=== PATIENT | female | born 1950 | race Caucasian/White ===

== ENCOUNTER 2019-08-24 07:30 | Inpatient (IN) | payer MEDICARE, BC ==
[~2019-08-24 07:30] MED LIST: Buffered Lidocaine 1% SYRIN* 1 ML/SYRINGE INTRADERM ONE; Famotidine IV* 10 MG/ML 2 ML (20 mg) IV SLOW PU ONE; Lactated Ringers 1000 ML Bag* 1,000 ML IV SCH; Tranexamic Acid 1,000 MG in NS 0.9% 50 ML* (outpatient use) IV SCH
--- OUTSIDE RECORDS SUMMARY | 2019-08-24 08:05 | XMS REPORT | Continuity of Care Document ---
:1950 External Reference #:[id number] Author Name Randell Hankins M.D. (transmitted by agent of provider Monica Littlefork) Address [address] [place] [address], [place] [address] Care Team Providers Name Role Phone Apurva Monae MD - Family Care Team Information Putty Tinter Maker [phone] Medicine Problems Active Problems Provider Date Localized, primary osteoarthritis of Evangelist Bhardwaj MD Onset: 04/28/2019 the shoulder region Essential tremor Randell Hankins M.D. Onset: 01/28/2018 Essential hypertension Alba Elmore M.D. Onset: 01/18/2016 Restrictive cardiomyopathy secondary to Alba Elmore M.D. Onset: granulomas Tricuspid valve disorder, non-rheumatic Alba Elmore M.D. Onset: Benign essential hypertension Alba Elmore M.D. Onset: 01/04/2013 Mitral valve disorder Alba Elmore M.D. Onset: 01/04/2013 Social History Type Date Description Comments Sex Unknown ETOH Use Consumes 2 glasses of wine per day Tobacco Use Start: Unknown End: Patient is a former smoker Unknown Recreational Drug Use Denies Drug Use Smoking Status Reviewed: 08/15/19 Patient is a former smoker Exercise Type/Frequency Exercises regularly Allergies, Adverse Reactions, Alerts Active Allergies Reaction Severity Comments Date Latex 11/25/2016 Inactive Allergies NKDA 11/12/2005 Medications Active Medications SIG Qnty Indications Ordering Provider Date Hydrochlorothiazide 1 by mouth 30caps Randell Hankins, 08/15/2019 12.5mg every day M.D. Capsules Amlodipine Besylate 1 by mouth Qutaybjuan S. 06/28/2019 10mg Tablets every day Jonatan Elmore Primidone take 1 at 90tabs G25.0 Randell Hankins, 04/08/2019 50mg Tablets night M.DDebi Levothyroxine Sodium PO qam 30tabs [place] S. 09/15/2007 88mcg Jonatan Elmore Tablets Albuterol Inhalation 2 Puffs qid Alba S. 11/11/2005 90mcg/Dose prn Jonatan Elmore Aerosol Metoprolol Succinate ER 1 po bid Unknown 100mg Tablets ER 24HR Vitamin D 2 tablets 5x Unknown per week Biotin 1 po qd Unknown 2500mcg Capsules Calcium 1 by mouth Unknown 600mg Tablets three days a week Vitamin B12 1 by mouth Unknown 1000mcg Tablets ER three days a week Immunizations Description No Information Available Vital Signs Date Vital Result Comment 08/15/2019 11:59am Height 64 inches 5'4" Weight 113.00 lb Heart Rate 90 /min BP Systolic 132 mmHg BP Diastolic 72 mmHg BMI (Body Mass Index) 19.4 kg/m2 06/29/2019 1:42pm Height 64 inches 5'4" Weight 114.00 lb with shoes Heart Rate 86 /min radial, regular BP Systolic Sitting 166 mmHg LA, reg cuff BP Diastolic Sitting 82 mmHg LA, reg cuff BP Systolic Standing 162 mmHg LA, reg cuff BP Diastolic Standing 84 mmHg LA, reg cuff BMI (Body Mass Index) 19.6 kg/m2 Ejection Fraction 55%-60% echo 01/16/15 Results Test Date Facility Test Result H/L Range Note Urine Culture And 08/04/2019 [facility] Urine Culture SEE RESULT [address] [place] [address] [phone] 1 SEE RESULT BELOW Name: CATALINA MOORE : [address]: Apurva Monae MD Acct: [id number] Unit: [id number] AGE: 68 Location: [facility] Re08/04/19 SEX: F Status: REG REF SPEC: [id number] NETTA: 08/04/[address] [facility] [address]: Apurva Monae MD REQ: [id number] RECD: 08/04/19 STATUS: COMP OTHR DR: Evangelist Bhardwaj MD _ SOURCE: URINE SPDESC: ORDERED: Urine Culture COMMENTS: Copy Result to: EVANGELIST BHARDWAJ ([id number]) [id number] Urine Source: Random Procedure Result Reported Site Urine Culture Final 08/05/19- 1227 ML No growth of clinically significant organisms * ML - Main Lab . END OF REPORT DEPARTMENT OF PATHOLOGY, [address] [place] [address] Joaquin Pacheco M.D. Director [facility] # [id number] Procedures Date Code Description Status 07/21/2019 82259 Holter Monitor Review (24 hr)dr review & interp only Completed 07/19/2019 24393 ECG Monitor/Recording W/Visual Superimposition Scanning Completed 07/19/2019 51610 ECG Monitor/Recording W/Visual Superimposition Scanning Completed 07/18/2019 58739 ECHO Transthoracic, Real-Time 2D With Doppler And Color Completed Flow 07/18/2019 96870 ECHO Transthoracic, Real-Time 2D With Doppler And Color Completed Flow 06/29/2019 26508 EKG Tracing & Interpretation Completed 05/06/2002 15255224 Colonoscopy Completed Medical Devices Description No Information Available Encounters Type Date Location Provider Dx Diagnosis Office Visit 06/29/2019 [facility] [place] S. I34.0 Nonrheumatic mitral 2:00p Jonatan Elmore (valve) insufficiency I10 Essential (primary) hypertension E78.5 Hyperlipidemia, unspecified Z01.810 Encounter for preprocedural cardiovascular examination R00.0 Tachycardia, unspecified R94.31 Abnormal electrocardiogram [ECG] [EKG] M19.011 Primary osteoarthritis, right shoulder Office Visit 06/14/2019 [facility] Saenz M19.011 Primary 1:15p [facility] oste[facility], [place] right shoulder Office Visit 05/12/2019 [facility] Saenz M19.011 Primary 11:15a [facility] osteoarthritis, [place] right shoulder Office Visit 04/28/2019 [facility] Saenz M19.011 Primary 10:45a [facility] osteoarthritis, [place] right shoulder S46.011A Strain of musc/tend the rotator cuff of right shoulder, init Office Visit 04/08/2019 8:45a [facility] Randell Hankins, G25.0 [facility] tremor Assessments Date Code Description Provider 08/15/2019 G25.0 Essential tremor Randell Hankins M.D. 07/21/2019 R00.0 Tachycardia, unspecified Alba Elmore M.D. 07/19/2019 R00.0 Tachycardia, unspecified Alba Elmore M.D. 07/19/2019 R00.0 Tachycardia, unspecified Nurse Visit cc 07/18/2019 I34.0 Nonrheumatic mitral (valve) Alba Elmore M.D. insufficiency 07/18/2019 I34.0 Nonrheumatic mitral (valve) [facility] insufficiency 07/18/2019 I10 Essential (primary) hypertension [facility] 07/18/2019 R00.0 Tachycardia, unspecified [facility] 06/29/2019 I34.0 Nonrheumatic mitral (valve) Alba Elmore M.D. insufficiency 06/29/2019 I10 Essential (primary) hypertension Alba Elmore M.D. 06/29/2019 E78.5 Hyperlipidemia, scoobyified Alba Elmore M.D. 06/29/2019 Z01.810 Encounter for preprocedural Alba Elmore M.D. cardiovascular examination 06/29/2019 R00.0 Tachycardia, unspecified Alba Elmore M.D. 06/29/2019 R94.31 Abnormal electrocardiogram [ECG] Alba Elmore M.D. [EKG] 06/29/2019 M19.011 Primary osteoarthritis, right Alba Elmore M.D. shoulder 06/14/2019 M19.011 Primary osteoarthritis, right Evangelist Bhardwaj MD shoulder 05/12/2019 M19.011 Primary osteoarthritis, right Evangelist Bhardwaj MD shoulder 04/28/2019 M19.011 Primary osteoarthritis, right Evangelist Bhardwaj MD shoulder 04/28/2019 S46.011A Strain of muscle(s) and tendon(s) of Evangelist Bhardwaj MD the rotator cuff of [facility] 04/08/2019 G25.0 Essential tremor Randell Hankins M.D. Plan of Treatment Future Appointment(s):02/16/2020 2:15 pm - Randell Hankins M.D. at [facility]08/24/2019 10:30 am - Evangelist Bhardwaj MD at [facility]08/16/2019 9:15 am - Evangelist Bhardwaj MD at [facility]08/15/2019 - Randell Hankins M.D.G25.0 Essential tremor Functional Status Description No Information Available Mental Status Description No Information Available Referrals Description No Information Available
--- OUTSIDE RECORDS SUMMARY | 2019-08-24 08:05 | XMS REPORT | Continuity of Care Document ---
:1950 External Reference #:[id number] Author Name Evangelist Bhardwaj MD (transmitted by agent of provider Mary Bsas) Address [address] [place] [address] Care Team Providers Name Role Phone Apurva Monae MD - Family Care Team Information Flatwork Catcher [phone] Medicine Problems Active Problems Provider Date Localized, [...] Use Denies Drug Use Smoking Status Reviewed: 08/16/19 Patient is a former smoker Exercise Type/Frequency [...] D 2 tablets 5x Unknown per week Calcium 1 by mouth Unknown 600mg Tablets three days a week Vitamin B12 1 by mouth Unknown 1000mcg Tablets ER three days a week Immunizations Description No Information Available Vital Signs Date Vital Result Comment 08/16/2019 9:13am Height 64 inches 5'4" Weight 114.25 lb Heart Rate 72 /min BP Systolic 128 mmHg BP Diastolic 66 mmHg Respiratory Rate 18 /min Body Temperature 99.2 F Pain Level 1 BMI (Body Mass Index) 19.6 kg/m2 08/15/2019 11:59am Height 64 inches 5'4" Weight 113.00 lb Heart Rate 90 /min BP Systolic 132 mmHg BP Diastolic 72 mmHg BMI (Body Mass Index) 19.4 kg/m2 Results Test Date Facility Test Result H/L Range Note Urine Culture And 08/04/2019 [facility] Urine Culture SEE RESULT [address] [place] [address] [phone] 1 SEE RESULT BELOW Name: CATALINA MOORE : [address]: Apurva Monae MD Acct: [id number] Unit: [id number] AGE: 68 Location: [facility] Re08/04/19 SEX: F Status: REG REF SPEC: [id number] NETTA: 08/04/19 [facility] DR: Apurva Monae MD REQ: [id number] RECD: 08/04/19 STATUS: JEFF ASTORGA DR: Evangelist Bhardwaj MD _ SOURCE: URINE SPDESC: ORDERED: Urine Culture COMMENTS: Copy Result to: EVANGELIST BHARDWAJ ([id number]) [id number] Urine Source: Random Procedure Result Reported Site Urine Culture Final 08/05/19- 1227 ML No growth of clinically significant organisms * ML - Main Lab . END OF REPORT DEPARTMENT OF PATHOLOGY, [address] [place] [address] Joaquin Pacheco M.D. Director [facility] # [id number] Procedures Date Code Description Status 07/21/2019 18338 Holter Monitor Review (24 hr)dr review & interp only Completed 07/19/2019 96348 ECG Monitor/Recording W/Visual Superimposition Scanning Completed 07/19/2019 77136 ECG Monitor/Recording W/Visual Superimposition Scanning Completed 07/18/2019 65673 ECHO Transthoracic, Real-Time 2D With Doppler And Color Completed Flow 07/18/2019 81524 ECHO Transthoracic, Real-Time 2D With Doppler And Color Completed Flow 06/29/2019 26298 EKG Tracing & Interpretation Completed 05/06/2002 19852718 Colonoscopy Completed Medical Devices Description No Information Available Encounters Type Date Location Provider Dx Diagnosis Office Visit 06/29/2019 [facility] Qutaybeh S. I34.0 Nonrheumatic mitral 2:00p Jonatan Elmore (valve) insufficiency I10 Essential (primary) hypertension E78.5 Hyperlipidemia, unspecified Z01.810 Encounter for preprocedural cardiovascular examination R00.0 Tachycardia, unspecified R94.31 Abnormal electrocardiogram [ECG] [EKG] M19.011 Primary osteoarthritis, right shoulder Office Visit 06/14/2019 [facility] M19.011 Primary 1:15p [facility] osteoarthritis, [place] right shoulder Office Visit 05/12/2019 [facility] M19.011 Primary 11:15a [facility] osteoarthritis, [place] right shoulder Office Visit 04/28/2019 [facility] M19.011 Primary 10:45a [facility] osteoarthritis, [place] right shoulder S46.011A Strain of musc/tend the rotator cuff of right shoulder, init Office Visit 04/08/2019 8:45a [facility] Randell Hankins G25.0 [facility] tremor Assessments Date Code Description Provider 08/16/2019 M19.011 Primary osteoarthritis, right Zaneb Yaseen, MD shoulder 08/16/2019 S46.011D Strain of muscle(s) and tendon(s) of Evangelist Bhardwaj MD the rotator cuff of right shoulder, subsequent encounter 08/15/2019 G25.0 Essential tremor Randell Hankins M.D. 07/21/2019 R00.0 Tachycardia, unspecified Alba Elmore M.D. 07/19/2019 R00.0 Tachycardia, unspecified Alba Elmore M.D. 07/19/2019 R00.0 Tachycardia, unspecified Nurse Visit cc 07/18/2019 I34.0 Nonrheumatic mitral (valve) Alba Elmore M.D. insufficiency 07/18/2019 I34.0 Nonrheumatic mitral (valve) [place] Schedule insufficiency 07/18/2019 I10 Essential (primary) hypertension [facility] 07/18/2019 R00.0 Tachycardia, unspecified [facility] 06/29/2019 I34.0 Nonrheumatic mitral (valve) Alba Elmore M.D. insufficiency 06/29/2019 I10 Essential (primary) hypertension Alba Elmore M.D. 06/29/2019 E78.5 Hyperlipidemia, sanjeev Elmore M.D. 06/29/2019 Z01.810 Encounter for preprocedural Alba Elmore M.D. cardiovascular examination 06/29/2019 R00.0 Tachycardia, unspeckaila Elmore M.D. 06/29/2019 R94.31 Abnormal electrocardiogram [ECG] Alba Elmore M.D. [EKG] 06/29/2019 M19.011 Primary osteoarthritis, right Alba Elmore M.D. shoulder 06/14/2019 M19.011 Primary osteoarthritis, right Evangelist Bhardwaj MD shoulder 05/12/2019 M19.011 Primary osteoarthritis, right Evangelist Bhardwaj MD shoulder 04/28/2019 M19.011 Primary osteoarthritis, right Evangelist Bhardwaj MD shoulder 04/28/2019 S46.011A Strain of muscle(s) and tendon(s) of Evangelist Bhardwaj MD the rotator cuff of rig 04/08/2019 G25.0 Essential tremor Randell Hankins M.D. Plan of Treatment Future Appointment(s):09/08/2019 1:45 pm - Evangelist Bhardwaj MD at [facility] at [facility]8/24/2019 10:30 am - Meryl Deluna PA-C at [facility]02/16/2020 2:15 pm - Randell Hankins M.D. at [facility]08/24/2019 10:30 am - Evangelist Bhardwaj MD at [facility] at Swcizt8908/16/2019 - Evangelist Bhardwaj, MDM19.011 Primary osteoarthritis , right shoulderFollow up:Follow up: 10-14 days post opS46.011D Strain of muscle(s) and tendon(s) of the rotator cuff of right shoulder, subsequent encounter Functional Status Description No Information Available Mental Status Description No Information Available Referrals Description No Information Available
--- OUTSIDE RECORDS SUMMARY | 2019-08-24 08:05 | XMS REPORT | Continuity of Care Document ---
:1950 External Reference #:[id number] Author Name Alba Elmore M.D. (transmitted by agent of provider Melany Nath) Address [address] [place] [address] Care Team Providers Name Role Phone Apurva Monae MD - Family Care Team Information [place] Clerk [phone] Medicine Problems Active Problems Provider Date Localized, primary osteoarthritis of Letty Hector MD Onset: 04/28/2019 the shoulder region Essential [...] Use Denies Drug Use Smoking Status Reviewed: 06/29/19 Patient is a former smoker Exercise Type/Frequency Exercises regularly Allergies, Adverse Reactions, Alerts Active Allergies Reaction Severity Comments Date Latex 11/25/2016 Inactive Allergies NKDA 11/12/2005 Medications Active Medications SIG Qnty Indications Ordering Provider Date Amlodipine Besylate 1 by mouth every Qutaybeh S. 06/28/2019 10mg day Jonatan Elmore Tablets Primidone take 1 at night 30tabs G25.0 Taurus Richardson, 04/08/2019 50mg Tablets N.P. Levothyroxine Sodium PO qam 30tabs [place] S. 09/15/2007 Jonatan Elmore 88mcg Tablets Albuterol Inhalation 2 Puffs qid prn Alba S. 11/11/2005 Jonatan Elmore 90mcg/Dose Aerosol Metoprolol Succinate 1 po bid Unknown ER 100mg Tablets ER 24HR Vitamin D 2 tablets 5x per Unknown week Biotin 1 po qd Unknown 2500mcg Capsules Calcium 1 by mouth three Unknown 600mg Tablets days a week Vitamin B12 1 by mouth three Unknown 1000mcg days a week Tablets ER Immunizations Description No Information Available Vital Signs Date Vital Result Comment 06/29/2019 1:42pm Height 64 inches 5'4" Weight 114.00 lb with shoes Heart Rate 86 /min radial, regular BP Systolic Sitting 166 mmHg LA, reg cuff BP Diastolic Sitting 82 mmHg LA, reg cuff BP Systolic Standing 162 mmHg LA, reg cuff BP Diastolic Standing 84 mmHg LA, reg cuff BMI (Body Mass Index) 19.6 kg/m2 Ejection Fraction 55%-60% echo 01/16/15 06/14/2019 1:13pm Height 64 inches 5'4" Weight 114.00 lb BP Systolic 130 mmHg BP Diastolic 76 mmHg Respiratory Rate 20 /min Pain Level 2 BMI (Body Mass Index) 19.6 kg/m2 Results Description No Information Available Procedures Date Code Description Status 06/29/2019 70517 EKG Tracing & Interpretation Completed 05/06/2002 55957112 Colonoscopy Completed Medical Devices Description No Information Available Encounters Type Date Location Provider Dx Diagnosis Office Visit 06/14/2019 [facility] Letty Hector MD M19.011 Primary 1:[facility]p [facility], right shoulder Office Visit 05/12/2019 [facility] Letty Hector MD M19.011 Primary 11:15a [facility], right shoulder Office Visit 04/28/2019 [facility] Let[facility] Hector MD M19.011 Primary 10:45a [facility], right shoulder S46.011A Strain of musc/tend the rotator cuff of right shoulder, init Office Visit 04/08/2019 8:45a [facility] Randell Hankins G25.0 [facility] tremor Assessments Date Code Description Provider 06/29/2019 I34.0 Nonrheumatic mitral (valve) Alba Elmore M.D. insufficiency 06/29/2019 I10 Essential (primary) hypertension Alba Elmore M.D. 06/29/2019 E78.5 Hyperlipidemia, unspecified Alba Elmore M.D. 06/29/2019 Z01.810 Encounter for preprocedural Alba Elmore M.D. cardiovascular examination 06/29/2019 R00.0 Tachycardia, unspecified Alba Elmore M.D. 06/14/2019 M19.011 Primary osteoarthritis, right Letty Hector MD shoulder 05/12/2019 M19.011 Primary osteoarthritis, right Letty Hector MD shoulder 04/28/2019 M19.011 Primary osteoarthritis, right Letty Hector MD shoulder 04/28/2019 S46.011A Strain of muscle(s) and tendon(s) of Letty Hector MD the rotator cuff of rig 04/08/2019 G25.0 Essential tremor Randell Hankins M.D. Plan of Treatment Future Appointment(s):07/14/2019 8:00 am - [facility]07/20/2019 1:30 pm - Nurse Visit cc at [facility]07/19/2019 3 :00 pm - Nurse Visit cc at [facility]08/24/2019 9:30 am - Letty Hector MD at [facility]/16/2019 9:15 am - Letty Hector MD at [facility]/11/2019 3:00 pm - Randell Hankins M.D. at [facility]06/29/2019 - Alba Elmore M.D.I34.0 Nonrheumatic mitral (valve) insufficiencyNew Orders:Echocardiogram, Ordered: 09/06I10 Essential (primary) hypertensionFollow up:one yr ovE78.5 Hyperlipidemia , mwfvyguhoriQ79.810 Encounter for preprocedural cardiovascular cyjsxsyghzmK90.0 Tachycardia, unspecifiedNew Orders:24 hour holter monitor, Scheduled: 06/29/19 Functional Status Description No Information Available Mental Status Description No Information Available Referrals Description No Information Available
[2019-08-24] MEDS ORDERED: Buffered Lidocaine 1% SYRIN* 1 ML/SYRINGE INTRADERM ONE (08:59)
[2019-08-24] MEDS ORDERED: Famotidine IV* 10 MG/ML 2 ML (20 mg) ONE (09:00)
[2019-08-24] MEDS ORDERED: ceFAZolin 2 GM in NS PREMIX(*) 2 GM/100 ML BAG IVPB ONE (09:00)
[2019-08-24] MEDS ORDERED: ROPIVACAINE 5 MG/ML 30 ML BTL (0.5%) ONE (09:31)
[2019-08-24] MEDS ORDERED: Lidocaine 1% MPF ** 5 ML VIAL ONE (09:31)
[2019-08-24] MEDS ORDERED: Midazolam* 1 MG/ML 5 ML VIAL (5 MG) ONE (09:50)
[2019-08-24] MEDS ORDERED: KETAMINE HCL* 50 MG/ML 10 ML VIAL ONE (10:32)
[2019-08-24] MEDS ORDERED: fentaNYL* 50 MCG/ML 2 ML VIAL (100 MCG VIAL) ONE (10:34)
[2019-08-24] MEDS ORDERED: Dexamethasone IV* 4 MG/ML 1 ML (4 MG) ONE (10:57)
[2019-08-24] MEDS ORDERED: Ketorolac INJ* 30 MG/ML 1 ML VIAL ONE (10:57)
[2019-08-24] MEDS ORDERED: Lidocaine 2% PF * 5 ML VIAL ONE (10:57)
[2019-08-24] MEDS ORDERED: Propofol* 10 MG/ML 20 ML BTL ONE (10:57)
[2019-08-24] MEDS ORDERED: Succinylcholine* 20 MG/ML 10 ML VIAL ONE (10:57)
[2019-08-24] MEDS ORDERED: DiMENhydriNATE IV* 50 MG/ML VIAL ONE (10:57)
[2019-08-24] MEDS ORDERED: Ondansetron INJ* 2 MG/ML VIAL ONE (10:57)
[2019-08-24] MEDS ORDERED: hydrALAZINE IV* 20 MG/ML VIAL ONE (11:51)
[2019-08-24] MEDS ORDERED: oxyCODONE/Acetamin 5/325 MG* TAB PO PRN ×2 (12:05)
[2019-08-24] MEDS ORDERED: traMADol TAB* 50 MG PO PRN (12:05)
[2019-08-24] MEDS ORDERED: diPHENhydraMINE IV* 50 MG/ML 1 ml VIAL (BENADRYL) IV PRN (12:05)
[2019-08-24] MEDS ORDERED: Cyclobenzaprine TAB* 10 MG PO PRN (12:05)
[2019-08-24] MEDS ORDERED: Temazepam CAP* 15 MG PO PRN (12:05)
[2019-08-24] MEDS ORDERED: Magnesium Hydroxide LIQ* 30 ML UDC PO PRN (12:05)
[2019-08-24] MEDS ORDERED: Ondansetron INJ* 2 MG/ML VIAL IV PRN (12:05)
[2019-08-24] MEDS ORDERED: oxyCODONE TAB* 5 MG TAB PO PRN ×2 (12:05→12:09)
[2019-08-24] MEDS ORDERED: Morphine INJ* 2 MG/ML 1 ML SYRINGE (TWO MG - NEW SYRINGE VERSION) IV PRN (12:05)
[2019-08-24] MEDS ORDERED: diPHENhydraMINE PO* 25 MG PO PRN (12:05)
[2019-08-24] MEDS ORDERED: Ondansetron ODT TAB* 4 MG PO PRN (12:05)
[2019-08-24] MEDS ORDERED: Polyethylene Glycol 3350* 17 GM PACKET PO PRN (12:05)
[2019-08-24] MEDS ORDERED: Naloxone* 0.4 MG/ML 1 ML VIAL IV PRN (12:09)
[2019-08-24] MEDS ORDERED: Acetaminophen TAB* 325 MG PO PRN (12:09)
[2019-08-24] MEDS ORDERED: Labetalol IV* 5 MG/ML 20 ML VIAL IV PUSH PRN ×2 (12:10→12:12)
[2019-08-24] MEDS ORDERED: Albuterol HFA INHALER* 8 gm MDI INH PRN (12:11)
[2019-08-24] MEDS ORDERED: Lactated Ringers 1000 ML Bag* 1,000 ML IV SCH (13:00)
--- NOTE | 2019-08-24 15:03 | OP ---
DATE OF OPERATION: 08/24/19 - ROOM #347 DATE OF : 46 SURGEON: Letty Hector MD ANESTHESIOLOGIST: Dr. Buckner. ANESTHESIA: General interscalene block. SCHOOL PHYSICAL THERAPIST: Meryl Deluna. An certified registered dental assistant was needed for the entirety of the case to help with positioning, retraction, and was utilized throughout all portions of the case. PRE-OP DIAGNOSIS: Endstage right shoulder glenohumeral arthritis with high- grade tearing of the rotator cuff and stiffness. POST-OP DIAGNOSIS: Endstage right shoulder glenohumeral arthritis with high- grade tearing of the rotator cuff and stiffness. OPERATIVE PROCEDURE: Right shoulder reverse total arthroplasty and open biceps tenodesis. COMPLICATIONS: The patient did have an intraoperative fracture of the humerus for which we cabled but otherwise she had a stable shoulder. ESTIMATED BLOOD LOSS: 150. OUTPUT: Drains x1. IMPLANTS USED: Aequalis reversed II threaded post base plate 25 x 35 with size 36 glenosphere, a Flex shoulder system 3B with a centered reverse tray and +6 poly and 1 Synthes 1.7 mm cable. DISPOSITION: Stable. INDICATIONS: Catalina Moore is a 68-year-old female with endstage right shoulder glenohumeral arthritis. She has a history of a previous left shoulder replacement that was done by my colleague Dr. Antoine in [place] and she has elected for surgical treatment. She had very poor motion with forward flexion to about 100 external rotation to about 15 degrees and an MRI confirming that there is a high- grade partial tear of the supraspinatus. After extensive discussion of the risks and benefits operative versus nonoperative treatment, she has elected to proceed with surgical treatment. Risks were discussed at length include but were not limited to bleeding, infection, damage to nerves, vessels, surrounding structures, wound nonhealing, persistent pain, need for further surgery, scarring, stiffness, incomplete relief of symptoms and risk of anesthesia. DESCRIPTION OF PROCEDURE: The patient was greeted in the preoperative area by the attending surgeon. Correct extremity was marked and consent was confirmed. She then underwent interscalene nerve block by anesthesiologist. She was then brought back to the operating suite where she was placed in supine position on the operating table and underwent general anesthesia and endotracheal intubation after which she was positioned in lazy beach position. All bony prominences were padded. She was secured with pegboard. After she was secured carefully, the right shoulder was prepped and draped in the usual sterile fashion using chlorhexidine soap, scrub, and alcohol wipe and a final prep with ChloraPrep. After appropriate surgical pause indicating side, site and procedure, administration of antibiotics, a deltopectoral incision was made sharply with 15 blade. The soft tissue carefully dissected to expose the deltopectoral interval. Once this was identified, the cephalic vein was taken laterally. Soft tissue carefully dissected. The pec was identified and the proximal 1.5 cm was released and then the biceps was then tenodesed using heavy nonabsorbable suture, tenotomized proximal to that. Any subdeltoid adhesions were removed. The CA ligament was released. The biceps was used as a landmark to track proximally to the joint. The subscap was identified and then released and tagged with #5 Ethibond suture. The shoulder was then externally rotated. There was evidence of a full-thickness tear in the supraspinatus tendon at the very anterior margin. As the head was externally rotated, there was large anterior inferior spurs that were identified. This was then exposed and carefully removed with the osteotome. Then the provisional neck cut was then made. The canal finder was then used to find the canal and broaching began as the size 2 broach was placed to the external rotation with reversion of 30 degrees. The bone quality was very poor. There was evidence of fracture at the medial calcar. At this point, decision was made to stop broaching and a cable system was opened for cable placement. The protection plate was placed and attention was directed to the glenoid. The glenoid was exposed. The posterior retractor was placed. Care was taken to not damage the humerus. The anterior, posterior, and superior labrum were there released as well as the biceps tendon. There was great evidence of grade 3 and 4 changes in the glenoid. The inferior synovitis in the labrum were then carefully released as well to protect the soft tissues. Glenoid was found to be very small at the center. Low inferior portion of the glenoid was then marked and then a guide wire was then placed. Then a 25 mm base plate reamer was used to ream this. The 36 mm footprint reamer was then hand reamed. Size 8 mm cannulated drill bit was then used to drill the center peg and a 6.5 mm was used to drill. This was measured and a size 35 was found to be appropriate fit. The screw hole was tapped. A final base plate was then placed with excellent purchase. It was secured with 3 interlocking screws of appropriate length with good purchase. The glenosphere was then placed and impacted and secured with a set screw. Attention was directed then to the humerus. The cable was then passed around the proximal aspect of the humerus to try to prevent any propagation of the fracture. This was then provisionally tightened. Trialing them again, a size 3B was found to be appropriate. The centered tray was then placed and the trial poly was then placed. The shoulder was then carefully reduced and found to have good motion. External rotation to about 45 degrees, preoperatively she had 15 degrees, forward flexion to about 140 degrees, and abduction to 90 degrees. The final implants were chosen. These were repaired on back table by the attending surgeon. The stem was then placed again with same version to be well seated. The cable was then tightened again to about 30 kg of tension and then crimped. This helped to configure the stem, the stem which appeared to be stable. The final poly was impacted in position and the shoulder was reduced and taken through range of motion. The wounds were then copiously irrigated. There was appropriate amount of shuck. The intraarticular drain was then placed. The wounds irrigated again, the deltopectoral interval was closed with #2 Ethibond suture in a wedge fashion. The wounds were irrigated again. The skin was closed in layers with 3-0 Monocryl to subcutaneous in running. Sterile dressings were applied. A Cryo/ Cuff and a regular sling were applied. She was woke from anesthesia and transferred to the PACU in stable condition. POSTOPERATIVE PLAN: She will be nonweightbearing . She will only have elbow, hand and wrist range of motion. We will obtain postop x-rays. She will have 24 hours postoperative antibiotics. DVT prophylaxis will be Lovenox while she is inhouse, she will go home without anything due to no previous personal history. I will see the please the patient back in 10 to 14 days. [id number]/[facility] #: [id number] LUCY
[2019-08-24] MEDS: Acetaminophen TAB* 325 MG PO SCH ×2 (16:22→22:44)
[2019-08-24] MEDS: ceFAZolin 1 GM ADVAN(*) 1 GM in NS 0.9% 50 ML* 50 ML IVPB SCH (18:32)
--- NOTE | 2019-08-24 19:17 | CONS ---
HOSPITAL MEDICINE CONSULTATION REPORT: DATE OF CONSULT: 08/24/19 PROVIDER: Alba Leroy NP ATTENDING PHYSICIAN: Dr. Hector. CONSULTING PHYSICIAN: Dr. Nicole Painting (dictated by Alba Leroy NP). REASON FOR CONSULT: Co-management of chronic medical conditions. HISTORY OF PRESENT ILLNESS: Ms. 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 Hector. Please see dictated H and P from Meryl Deluna RPA, for complete details. In brief, the patient had ongoing pain and opted for an elective right total shoulder replacement with Dr. Hector. In the immediate postoperative period, the patient denies fever, chills, unintended weight loss. She denies any chest pain, edema, cough, hemoptysis, shortness of breath. No nausea, vomiting, diarrhea, abdominal pain, gross hematuria, or dysuria. Denies any focal weakness, sensory loss, dysphagia. She did complain prior to surgery of right shoulder pain. Denies any rashes, lesions, open sores, psychosis, or anxiety. Due to the patient's history of hypertension and cardiomyopathy, Hospital Medicine was asked to help co-manage her care during this hospitalization. PAST MEDICAL HISTORY: Significant for: 1. Hypertension. 2. History of breast cancer in 1990. 3. Asthma. 4. Hypothyroid. 5. History of vitamin B12 deficiency. 6. Endometriosis. 7. Osteopenia. 8. Tachycardia. 9. Essential tremor. PAST SURGICAL HISTORY: 1. Bilateral mastectomy. 2. D and C. 3. Oophorectomy. 4. Bilateral cataract surgery. 5. Left shoulder replacement. 6. Colonoscopy. 7. Skin cancer removed from her right forearm. 8. Breast reconstruction surgery. HOME MEDICATIONS: Include: 1. Hydrochlorothiazide 12.5 mg p.o. daily. 2. Primidone 50 mg p.o. at bedtime. 3. Metoprolol 100 mg p.o. b.i.d. 4. Levothyroxine 88 mcg p.o. q.a.m. 5. Vitamin B12 1000 mcg every other day. 6. Clobetasol 0.5% topically. 7. Calcium with vitamin D 1 tab p.o. daily. 8. Albuterol (Ventolin) inhaler 2 puffs q.4 hours as needed for shortness of breath. ALLERGIES: She has an allergy to AMLODIPINE, ALOE, LATEX. FAMILY HISTORY: Mother at the age of 63 from cardiomyopathy. Father at the age of 83 from a stroke. Brother with hypertension. Father with diabetes. No reported history of cancer. SOCIAL HISTORY: The patient quit smoking 30 years ago. Prior to that, she smoked a pack a day for 15 years. She does report 2 glasses of wine daily. Denies any drug use. She is . Surrogate decision maker in the event she is unable to make her own decisions is her . She is a full code. REVIEW OF SYSTEMS: A 14-point review of systems was completed. All pertinent positives were mentioned in the HPI. PHYSICAL EXAM: General: At this time, Ms. Moore is a 68-year-old female. She is resting comfortably in her hospital bed in her room. She is in no acute distress. Vital Signs: Blood pressure 140/74, heart rate is 100, respirations 16, O2 saturation 95%, temperature was 98.4. HEENT: Head is atraumatic, normocephalic. Eyes: EOMs are intact. Sclerae anicteric and not pale. Oral mucosa appeared to be moist. Neck is supple. Lungs are clear to auscultation bilaterally. No wheezes, rales, or rhonchi. Cardiac: S1, S2. Regular rate and rhythm. No murmurs, rubs, or gallops. Abdomen is soft and nontender. Bowel sounds are present x4. Musculoskeletal: She is able to move all 4 extremities. There is no clubbing or cyanosis. Radial pulses are +2 bilaterally. Pedal pulses are +2 bilaterally. Neurologic: She is awake, alert , oriented x3. Speech is clear. Thought process is intact. There are no gross focal deficits. Skin: She does have a dressing dry and intact with a drain to her right shoulder. DIAGNOSTIC STUDIES/LAB DATA: CBC from 07/30/19: WBCs are 6.2, RBCs 4.47, hemoglobin 15.1, hematocrit is 45, platelet count is 359. INR on 08/16/19 was 0.91, APTT was 33.3. CMP from 07/30/19: Sodium 138, potassium 4.5, chloride 101, carbon dioxide was 29, anion gap was 8, BUN was 17, creatinine 0.73, calcium was 9.6. Urine was within normal limits on 08/16/19. IMPRESSION AND PLAN: Ms. 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 Hector. Our recommendations are as follows: 1. Status post right shoulder replacement. Management per Orthopedics. PT/OT per Orthopedics. Bowel regimen per Orthopedics and pain management per Orthopedics. DVT prophylaxis per Orthopedics. 2. Hypertension. I would hold the hydrochlorothiazide. I will continue her on metoprolol 100 mg with holding parameters for systolic blood pressure less than 110 and heart rate less than 60. 3. Hypothyroid. She should continue on levothyroxine as previously prescribed. 4. Essential tremor. She should continue on primidone 50 mg at bedtime. 5. History of asthma. She can have Ventolin inhaler 2 puffs q.4 hours as needed for shortness of breath. 6. FEN. She can have a regular diet. 7. Code status. She is a full code. 8. DVT prophylaxis. As per Orthopedics. TIME SPENT: Time spent on this consultation was 45 minutes, greater than half that time was spent at the bedside reviewing events leading thus far to her hospitalization, performing physical exam, and reviewing my plan of care. I have discussed this with my attending, Dr. Nicole Painting; she is in agreement with my plan. ALBA LEROY, T[employer] HOUSE SUPERVISOR [id number]/[facility] #: [id number] LUCY
[2019-08-24] MEDS ORDERED: Metoprolol Tartrate TAB* 100 MG TAB PO SCH (21:00)
[2019-08-24] MEDS ORDERED: Primidone TAB(*) 50 MG PO SCH (21:00)
[2019-08-24] MEDS: Docusate CAP* 100 MG PO SCH (22:43)
[2019-08-24] MEDS: Metoprolol Tartrate TAB* 100 MG TAB PO SCH (22:43)
[2019-08-25] MEDS: ceFAZolin 1 GM ADVAN(*) 1 GM in NS 0.9% 50 ML* 50 ML IVPB SCH ×2 (02:30→10:11)
[2019-08-25 05:22] LABS: Hematocrit 31 % (35-47); Hemoglobin 10.6 g/dL (12.0-16.0); Mean Platelet Volume 7.3 fL (7.4-10.4); Platelet Count 382 10^3/uL (150-450)
[2019-08-25 05:36] LABS: BUN/Creatinine Ratio 19.7 (8-20); Calcium 8.1 mg/dL (8.6-10.3); EGFR African American 98.5 (>60); EGFR Non-African American 81.4 (>60); Potassium 3.6 mmol/L (3.5-5.0)
[2019-08-25] MEDS: Acetaminophen TAB* 325 MG PO SCH (05:53)
[2019-08-25] MEDS ORDERED: Levothyroxine TAB* 88 MCG TAB PO SCH (06:00)
[2019-08-25] MEDS: Metoprolol Tartrate TAB* 100 MG TAB PO SCH (08:46)
[2019-08-25] MEDS: Docusate CAP* 100 MG PO SCH (08:46)
[2019-08-25] MEDS ORDERED: Vitamin THERAPEUTIC TAB PO SCH (09:00)
--- NOTE | 2019-08-25 10:12 | PN ---
Progress Note - Progress Note Date of Service: 08/25/19 SOAP: Subjective: []Pt seen at bedside. She feels well without CP, SOB, dizziness or nausea Objective: []Gen: NAD RUE: sling in place, cryo cuff in use. Drain with minimal blood in cannister, drain was removed with tip intact, tolerated well by the patient. F/E wrist and MCPs intact, okay and thumbs up intact, sensation intact to light touch, cap refill less than two seconds distally , radial pulse 2+ Assessment: []Endstage right shoulder glenohumeral arthritis with high-grade tearing of the rotator cuff and stiffness. POD 1 sp Right shoulder reverse total arthroplasty and open biceps tenodesis. Plan: []PT/OT NWB RUE. No ROM of shoulder. Ok AROM elbow wrist and hand DC home today Vital Signs Temp 98.7 F 08/25/19 07:35 Pulse 88 08/25/19 07:35 Resp 20 08/25/19 09:33 BP 146/65 08/25/19 07:35 Pulse Ox 95 08/25/19 08:00 Intake & Output 08/24/19 08/25/19 08/25/19 18:59 06:59 18:59 Intake Total 1200 620 Output Total 700 300 610 Balance 500 320 -610 Weight 114 lb Intake: IV Fluids 1200 LR 1200 Oral 620 Output: Urine 700 300 610 Other: Estimated Void Large Laboratory Last Values Hgb 10.6 g/dL (12.0-16.0) L 08/25/19 04:56 Hct 31 % (35-47) L 08/25/19 04:56 Plt Count 382 10^3/uL (150-450) 08/25/19 04:56 MPV 7.3 fL (7.4-10.4) L 08/25/19 04:56 Sodium 135 mmol/L (135-145) 08/25/19 04:56 Potassium 3.6 mmol/L (3.5-5.0) 08/25/19 04:56 Chloride 101 mmol/L (101-111) 08/25/19 04:56 Carbon Dioxide 27 mmol/L (22-32) 08/25/19 04:56 Anion Gap 7 mmol/L (2-11) 08/25/19 04:56 BUN 14 mg/dL (6-24) 08/25/19 04:56 Creatinine 0.71 mg/dL (0.51-0.95) 08/25/19 04:56 Est GFR ( Amer) 98.5 (>60) 08/25/19 04:56 Est GFR (Non-Af Amer) 81.4 (>60) 08/25/19 04:56 BUN/Creatinine Ratio 19.7 (8-20) 08/25/19 04:56 Glucose 99 mg/dL (70-100) 08/25/19 04:56 Calcium 8.1 mg/dL (8.6-10.3) L 08/25/19 04:56
--- NOTE | 2019-08-25 10:27 | DS ---
Orthopedic Discharge Summary - Discharge Summary Date of Admission:08/24/19 Date of Discharge: 08/25/19 Date of Surgery: 08/24/19 Attending Orthopedic Provider: Dr Hector Pre-operative Diagnosis: Right shoulder pain Operative Procedure: right reverse shoulder arthroplasty Disposition of Patient: home Condition of Patient: stable History: SANDY PRETTY is a 68 year old F with years of increasingly severe right shoulder pain. Patient has failed conservative management and has elected to undergo a right reverse total shoulder replacement Hospital Course: SANDY was admitted to [facility] on 08/24/19. Patient underwent a right reverse total shoulder replacement without complication followed by a brief recovery in PACU and transfer to the Short Stay Surgical Unit in stable condition. Our hospitalist service, physical therapy and occupational therapy also participated in this patients care. Post- op day 1: patient was alert and in no acute distress. Dressing was clean, dry and intact. Drain was pulled with tip intact and tolerated well by the patient. Operative extremity wrist and digit extension and flexion intact, sensation intact to light touch distally, radial pulse 2+. Patient was deemed to be medically and orthopedically stable for discharge. Physical therapy goals were met. Home Medications Medication Instructions Recorded Confirmed Type Albuterol HFA INHALER* [Ventolin 2 puff INH Q4H PRN 07/13/18 08/24/19 History HFA Inhaler*] Clobetasol Propionate/Emoll 0.05 % TOPICAL SEE INSTRUCTIONS 07/13/18 08/24/19 History [Olux-E 0.05% Foam] Levothyroxine TAB* [Synthroid TAB*] 88 mcg PO QAM 07/13/18 08/24/19 History Calcium Citrate/Vitamin D2 1 each PO 1600 07/20/18 08/24/19 History [Calcium with Vit D Tablet] Cyanocobalamin TAB* [Vitamin B12 1,000 mcg PO EVERY OTHER DAY 07/20/18 08/24/19 History TAB*] Metoprolol Tartrate 100 mg PO BID 08/16/19 08/24/19 History Primidone TAB(*) [Mysoline TAB(*)] 50 mg PO BEDTIME 08/16/19 08/24/19 History hydroCHLOROthiazide 12.5 mg PO QAM 08/16/19 08/24/19 History [Hydrochlorothiazide] Discharge Instructions following Orthopedic Surgery: Activity: * nonweightbearing right arm, sling at all times * No range of motion of the shoulder. * Ok active range of motion of the elbow wrist and hand Wound care: * OK to shower on post-op day 3, no bathing, swimming, or submerging wound. * Use gentle soap, pat dry. Cover with gauze, tape. Call Orthopedic office for: * Increased drainage * Redness * Increased pain * Fever Go to ER with shortness of breath or chest pain. Diet: * Regular diet * Increase fluids and fiber to prevent constipation. * Continue to use stool softeners, call office if no bowel motion within 48 hours. Medications See Home Medication List in your packet for medications that you should take after discharge. Pain Control: Percocet Dosin/325 mg 1-2 tabs by mouth every 4-6 hours as needed for pain. Maximum of 8 tabs per day. Hold for sedation, wean off as soon as pain allows Please note that Percocet contains Tylenol (acetaminophen). Maximum daily dose of Tylenol is 4000 mg from all sources. Antibiotics are required prior to any dental work. FOLLOW UP: Follow up with [Krunal] Within 10-14 days, call for appointment Please call our office with any questions or concerns ([phone]) [facility]
[2019-08-25 11:49] VITALS: BP 144/62
[2019-08-25] MEDS ORDERED: Enoxaparin(*) 40 MG/0.4 ML SYR SUBCUT SCH (12:00)
[2019-08-26] MEDS ORDERED: Cyanocobalamin TAB* 500 MCG PO SCH (09:00)
[2019-08-26] MEDS ORDERED: Bisacodyl SUPP* 10 MG SUPP PR PRN (12:06)
== END 2019-08-25 12:00 | disposition home or self-care (01) | DRG 483 ==
LOC: INTOOBSV 08:02 → AA 08:02 → OBSVTOIN 12:10 → SSU 14:12
PROVIDERS: ADMIT Orthopaedic Surgery; ATTEND Orthopaedic Surgery
PROC: 0PSC04Z Reposition Right Humeral Head with Internal Fixation Device, Open Approach (ICD-10-PCS; 2019-08-24)
PROC: 0RRJ00Z Replacement of Right Shoulder Joint with Reverse Ball and Socket Synthetic Substitute, Open Approach (ICD-10-PCS; principal; 2019-08-24 09:45)
DX: M19.011 Primary osteoarthritis, right shoulder (principal); I42.5 Other restrictive cardiomyopathy; M96.621 Fracture of humerus following insertion of orthopedic implant, joint prosthesis, or bone plate, right arm; I10 Essential (primary) hypertension; J45.909 Unspecified asthma, uncomplicated; E03.9 Hypothyroidism, unspecified; G25.0 Essential tremor; M85.80 Other specified disorders of bone density and structure, unspecified site; Z96.612 Presence of left artificial shoulder joint; M41.9 Scoliosis, unspecified; M75.101 Unspecified rotator cuff tear or rupture of right shoulder, not specified as traumatic; Y83.8 Other surgical procedures as the cause of abnormal reaction of the patient, or of later complication, without mention of misadventure at the time of the procedure; Y92.234 Operating room of hospital as the place of occurrence of the external cause; L92.8 Other granulomatous disorders of the skin and subcutaneous tissue; I36.8 Other nonrheumatic tricuspid valve disorders; I05.9 Rheumatic mitral valve disease, unspecified; E78.00 Pure hypercholesterolemia, unspecified; E78.5 Hyperlipidemia, unspecified; I27.20 Pulmonary hypertension, unspecified; Z90.13 Acquired absence of bilateral breasts and nipples; Z85.3 Personal history of malignant neoplasm of breast; Z88.8 Allergy status to other drugs, medicaments and biological substances; Z91.040 Latex allergy status; Z91.048 Other nonmedicinal substance allergy status; Z87.891 Personal history of nicotine dependence; Z85.828 Personal history of other malignant neoplasm of skin; Z79.890 Hormone replacement therapy; Z79.899 Other long term (current) drug therapy
CPT/HCPCS: 36415; 80048; 85014; 85018; 85049; 88304; 88311; A9270-GY; C1713; C1776; G8978-GP-CI; G8979-GP-CI; G8980-GP-CI; G8987-GO-CK; G8988-GO-CK; G8989-GO-CK; J0330; J0360; J0690; J1100; J1240; J1650; J1885; J2250; J2405; J2704; J2795; J3010

== ENCOUNTER 2022-03-13 20:30 | Inpatient (IN) ==
[2022-03-13] MEDS ORDERED: NS 0.9% 1000 ml BAG 1,000 ML IV ONE (22:04)
[2022-03-13] MEDS ORDERED: Morphine 2 MG/ML SYRINGE IV ONE (22:05)
[2022-03-13 22:40] LABS: ABS Eosinophils 0.1 10^3/ul (0-0.6); ABS Lymphocytes 0.8 10^3/ul (1.0-4.8); ABS Monocytes 1.1 10^3/ul (0-0.8); ABS Neutrophils 11.4 10^3/ul (1.5-7.7); Eosinophil % 0.5 %; Hematocrit 35 % (35-47); Hemoglobin 11.7 g/dL (12.0-16.0); Lymphocyte % 5.6 %; Mean Corpuscular HGB Conc 33 g/dL (31-36); Mean Corpuscular Hemoglobin 33 pg (27-31); Mean Corpuscular Volume 100 fL (80-97); Mean Platelet Volume 8.5 fL (7.4-10.4); Platelet Count 369 10^3/uL (150-450); Red Blood Count 3.55 10^6 /uL (3.70-4.87); Red Cell Distribution Width 13 % (10-15); White Blood Count 13.3 10^3/uL (3.5-10.8)
[2022-03-13 22:47] LABS: Urine Appearance Cloudy; Urine Bilirubin Negative (Negative); Urine Blood Negative (Negative); Urine Color Yellow; Urine Glucose Negative (Negative); Urine Ketones Trace (Negative); Urine Nitrite Negative (Negative); Urine Protein 2+(100 mg/dL) (Negative); Urine Specific Gravity 1.016 (1.002-1.030); Urine Urobilinogen Negative (Negative)
[2022-03-13 22:51] LABS: Urine Bacteria Absent (Absent); Urine Red Blood Cell 1+(3-5/hpf) (Absent); Urine Squamous Epithelial Cell Present (Absent); Urine White Blood Cell 1+(6-10/hpf) (Absent)
[2022-03-13 23:10] LABS: ALT 7 U/L (7-52); Albumin 3.7 g/dL (3.2-5.2); Albumin/Globulin Ratio 1.1 (1-3); Alkaline Phosphatase 52 U/L (35-149); Blood Urea Nitrogen 11 mg/dL (6-24); C Reactive Protein 118.69 mg/L (<8.01); CO2 Carbon Dioxide 23 mmol/L (22-32); Calcium 9.1 mg/dL (8.6-10.3); Chloride 97 mmol/L (101-111); Globulin 3.5 g/dL (2-4); Glucose 115 mg/dL (70-100); Lipase 24 U/L (11.0-82.0); Sodium 131 mmol/L (135-145); Total Protein 7.2 g/dL (6.4-8.9); eGFR CKD-EPI 94.3 (>60)
[2022-03-13 23:15] LABS: Anion Gap 11 mmol/L (2-11)
[2022-03-13] MEDS ORDERED: Metoprolol Tartrate 5 mg VIAL 5 ml VIAL (1 mg/ml) IV ONE (23:38)
[2022-03-14] MEDS ORDERED: cefTRIAXone 1 gm/50 mL D5W 1 GM/50 ML BAG IV ONE (01:31)
[2022-03-14] MEDS ORDERED: Morphine 4 MG/ML VIAL (1 ml) IV ONE (01:41)
[2022-03-14] MEDS ORDERED: NS 0.9% 1000 ml BAG 1,000 ML IV ONE (01:48)
[2022-03-14] MEDS ORDERED: Metoprolol Tartrate 5 mg VIAL 5 ml VIAL (1 mg/ml) IV ONE (01:59)
[2022-03-14 02:46] LABS: Potassium Redraw 4.2 mmol/L (3.5-5.0)
[2022-03-14] MEDS ORDERED: Lactated Ringers 1000 ml BAG 1,000 ML IV ONE (05:02)
[2022-03-14 05:38] LABS: Uric Acid 7.5 mg/dL (2.3-6.6)
[2022-03-14] MEDS ORDERED: Enoxaparin 40 MG/0.4 ML SYR SUBCUT SCH (06:00)
[2022-03-14 06:04] LABS: Carcinoembryonic Antigen 21.5 ng/mL (0.1-5.0)
[2022-03-14] MEDS ORDERED: Cyanocobalamin INJ 1,000 MCG/ML VIAL 1 ML VIAL IM ONE (07:34)
[2022-03-14 08:38] LABS: TSH Ultra Thyroid Stim Horm 6.47 mcIU/mL (0.34-5.60)
[2022-03-14 08:40] LABS: Free T4 0.88 ng/dL (0.61-1.12)
[2022-03-14 08:50] LABS: Folate 12.95 ng/mL (5.90-24.80)
[2022-03-14] MEDS: metroNIDAZOLE IV 500 MG/100ML 500 MG/100 ML BAG IVPB SCH ×2 (09:00→20:59)
[2022-03-14] MEDS: RALOXIFENE 60 MG PO SCH (13:41)
[2022-03-14] MEDS ORDERED: Midazolam 10 mg/10 ml VIAL 1 mg/ml 10 ml VIAL (10 mg) ONE (15:09)
[2022-03-14] MEDS ORDERED: fentaNYL 100 mcg/2 ml 50 MCG/ML VIAL ONE (15:10)
[2022-03-14] MEDS ORDERED: Sodium Phosphate ADULT ENEMA 133 ML BTL PR ONE (16:00)
[2022-03-14] MEDS: Enoxaparin 40 MG/0.4 ML SYR SUBCUT SCH (20:59)
[2022-03-15] MEDS: cefTRIAXone 1 gm/50 mL D5W 1 GM/50 ML BAG IV SCH (01:17)
[2022-03-15] MEDS: metroNIDAZOLE IV 500 MG/100ML 500 MG/100 ML BAG IVPB SCH ×3 (05:10→20:17)
[2022-03-15 05:34] LABS: ABS Eosinophils 0.1 10^3/ul (0-0.6); ABS Lymphocytes 0.8 10^3/ul (1.0-4.8); ABS Monocytes 1.2 10^3/ul (0-0.8); ABS Neutrophils 11.6 10^3/ul (1.5-7.7); Hematocrit 34 % (35-47); Hemoglobin 10.8 g/dL (12.0-16.0); Lymphocyte % 5.6 %; Mean Corpuscular HGB Conc 32 g/dL (31-36); Mean Corpuscular Hemoglobin 32 pg (27-31); Mean Corpuscular Volume 100 fL (80-97); Mean Platelet Volume 7.8 fL (7.4-10.4); Nucleated Red Blood Cells % 0.1; Platelet Count 318 10^3/uL (150-450); Red Blood Count 3.35 10^6 /uL (3.70-4.87); Red Cell Distribution Width 14 % (10-15); White Blood Count 13.9 10^3/uL (3.5-10.8)
[2022-03-15 06:18] LABS: Calcium 8.1 mg/dL (8.6-10.3); Magnesium 1.2 mg/dL (1.9-2.7)
[2022-03-15 06:24] LABS: eGFR CKD-EPI 93.3 (>60)
[2022-03-15] MEDS ORDERED: Magnesium Sulfate 2 gm BAG 2 GM/50 ML BAG IVPB ONE (09:07)
[2022-03-15] MEDS: RALOXIFENE 60 MG PO SCH (09:44)
[2022-03-15] MEDS: Enoxaparin 40 MG/0.4 ML SYR SUBCUT SCH (20:10)
[2022-03-16] MEDS: cefTRIAXone 1 gm/50 mL D5W 1 GM/50 ML BAG IV SCH (01:51)
[2022-03-16] MEDS: metroNIDAZOLE IV 500 MG/100ML 500 MG/100 ML BAG IVPB SCH ×2 (05:04→17:30)
[2022-03-16 05:18] LABS: Hematocrit 28 % (35-47); Mean Corpuscular HGB Conc 33 g/dL (31-36); Mean Corpuscular Hemoglobin 33 pg (27-31); Mean Corpuscular Volume 100 fL (80-97); Platelet Count 316 10^3/uL (150-450); Red Blood Count 2.77 10^6 /uL (3.70-4.87); Red Cell Distribution Width 13 % (10-15); White Blood Count 14.2 10^3/uL (3.5-10.8)
[2022-03-16 06:05] LABS: Calcium 7.9 mg/dL (8.6-10.3); Magnesium 1.6 mg/dL (1.9-2.7); Potassium 3.9 mmol/L (3.5-5.0); eGFR CKD-EPI 96.3 (>60)
[2022-03-16] MEDS ORDERED: Magnesium Sulfate 2 gm BAG 2 GM/50 ML BAG IVPB ONE (06:36)
[2022-03-16] MEDS: D5W 1/2 NS KCl 20 meq 1000 ml 1,000 ML IV SCH ×2 (08:03→16:47)
[2022-03-16] MEDS ORDERED: Propofol 10 MG/ML 20 ML BTL ONE ×2 (11:43→13:33)
[2022-03-16] MEDS ORDERED: Succinylcholine 200 mg VIAL 20 mg/ml 10 ml VIAL (200 mg) ONE (11:43)
[2022-03-16] MEDS ORDERED: fentaNYL 100 mcg/2 ml 50 MCG/ML VIAL ONE ×3 (11:43→15:22)
[2022-03-16] MEDS ORDERED: Midazolam 2 mg/2 ml VIAL 1 mg/ml 2 ml VIAL (2 mg) ONE (11:43)
[2022-03-16] MEDS ORDERED: Rocuronium 50 mg VIAL 10 mg/ml 5 ml VIAL (50 mg) ONE ×3 (11:59→13:27)
[2022-03-16] MEDS ORDERED: Ertapenem 1 GM in NS 0.9% 50 ML IVPB ONE (12:00)
[2022-03-16] MEDS ORDERED: Naloxone 0.4 mg VIAL 0.4 mg/ml 1 ml VIAL IV PRN (12:16)
[2022-03-16] MEDS ORDERED: Labetalol IV 5 MG/ML 20 ml VIAL ONE (12:22)
[2022-03-16] MEDS ORDERED: Dexamethasone IV 4 MG/ML VIAL 1 ml VIAL ONE (13:07)
[2022-03-16] MEDS ORDERED: ROPIVACAINE 5 MG/ML 30 ML BTL (0.5%) ONE (13:18)
[2022-03-16] MEDS ORDERED: Ondansetron 4 mg VIAL 2 MG/ML 2 ml VIAL ONE (14:28)
[2022-03-16] MEDS ORDERED: Acetaminophen IV 1 GM/100ML 100 ML IV ONE (14:29)
[2022-03-16] MEDS ORDERED: Naloxone 0.4 mg VIAL 0.4 mg/ml 1 ml VIAL IV PUSH PRN (15:18)
[2022-03-16] MEDS: fentaNYL 100 mcg/2 ml 50 MCG/ML VIAL IV PRN ×4 (15:24→15:43)
[2022-03-16] MEDS ORDERED: Morphine PCA ADULT 5 MG/ML 30 ML PCA SCH (15:30)
[2022-03-16] MEDS ORDERED: Ondansetron 4 mg VIAL 2 MG/ML 2 ml VIAL IV PRN (16:35)
[2022-03-16] MEDS: RALOXIFENE 60 MG PO SCH (16:52)
[2022-03-17] MEDS: D5W 1/2 NS KCl 20 meq 1000 ml 1,000 ML IV SCH ×2 (05:00→17:58)
[2022-03-17 06:11] LABS: ABS Eosinophils 0.1 10^3/ul (0-0.6); ABS Lymphocytes 0.7 10^3/ul (1.0-4.8); ABS Monocytes 1.4 10^3/ul (0-0.8); ABS Neutrophils 9.5 10^3/ul (1.5-7.7); Hematocrit 32 % (35-47); Hemoglobin 10.2 g/dL (12.0-16.0); Mean Corpuscular HGB Conc 32 g/dL (31-36); Mean Corpuscular Hemoglobin 33 pg (27-31); Mean Corpuscular Volume 102 fL (80-97); Mean Platelet Volume 8.3 fL (7.4-10.4); Platelet Count 406 10^3/uL (150-450); Red Blood Count 3.13 10^6 /uL (3.70-4.87); Red Cell Distribution Width 14 % (10-15); White Blood Count 11.8 10^3/uL (3.5-10.8)
[2022-03-17 06:30] LABS: Calcium 7.4 mg/dL (8.6-10.3); Magnesium 1.6 mg/dL (1.9-2.7); Potassium 4.3 mmol/L (3.5-5.0); eGFR CKD-EPI 94.3 (>60)
[2022-03-17] MEDS ORDERED: Magnesium Sulfate 2 gm BAG 2 GM/50 ML BAG IVPB ONE (07:36)
[2022-03-17] MEDS ORDERED: NS 0.9% 500 ml BAG 500 ML IV ONE (10:15)
[2022-03-17] MEDS: RALOXIFENE 60 MG PO SCH (12:47)
[2022-03-17] MEDS: Heparin 5000 UNITS/ML 1 mL VIAL SUBCUT SCH ×2 (15:25→22:26)
[2022-03-18] MEDS: D5W 1/2 NS KCl 20 meq 1000 ml 1,000 ML IV SCH (03:15)
[2022-03-18 05:17] LABS: ABS Eosinophils 0.4 10^3/ul (0-0.6); ABS Lymphocytes 0.6 10^3/ul (1.0-4.8); ABS Monocytes 1.3 10^3/ul (0-0.8); ABS Neutrophils 8.4 10^3/ul (1.5-7.7); Eosinophil % 3.6 %; Hematocrit 28 % (35-47); Hemoglobin 9.2 g/dL (12.0-16.0); Lymphocyte % 5.9 %; Mean Corpuscular HGB Conc 33 g/dL (31-36); Mean Corpuscular Hemoglobin 33 pg (27-31); Mean Corpuscular Volume 100 fL (80-97); Mean Platelet Volume 8.1 fL (7.4-10.4); Platelet Count 364 10^3/uL (150-450); Red Blood Count 2.77 10^6 /uL (3.70-4.87); Red Cell Distribution Width 13 % (10-15); White Blood Count 10.7 10^3/uL (3.5-10.8)
[2022-03-18 05:33] LABS: Calcium 7.3 mg/dL (8.6-10.3); Magnesium 1.8 mg/dL (1.9-2.7); Potassium 4.4 mmol/L (3.5-5.0)
[2022-03-18] MEDS: Heparin 5000 UNITS/ML 1 mL VIAL SUBCUT SCH ×3 (05:50→22:33)
[2022-03-18] MEDS ORDERED: Magnesium Sulfate IV 3 GM in NS 0.9% 100 ml BAG 100 ML IVPB ONE (07:03)
[2022-03-18] MEDS ORDERED: Magnesium Sulfate 2 GM IV (Premix) IVPB ONE (07:30)
[2022-03-18] MEDS: RALOXIFENE 60 MG PO SCH (08:27)
[2022-03-18] MEDS ORDERED: Magnesium Sulfate 1 GM IV 1 GM/100 ML BAG IV ONE (08:30)
[2022-03-18] MEDS ORDERED: HYDROmorphone 0.5 MG/0.5 ML SYRINGE IV SLOW PU PRN (14:57)
[2022-03-18] MEDS: HYDROmorphone 0.5 MG/0.5 ML SYRINGE IV SLOW PU PRN (19:00)
[2022-03-19] MEDS: Heparin 5000 UNITS/ML 1 mL VIAL SUBCUT SCH ×3 (06:16→21:07)
[2022-03-19] MEDS: HYDROmorphone 0.5 MG/0.5 ML SYRINGE IV SLOW PU PRN (06:16)
[2022-03-19 07:08] LABS: Calcium 7.8 mg/dL (8.6-10.3); Magnesium 1.8 mg/dL (1.9-2.7); Potassium 4.3 mmol/L (3.5-5.0); eGFR CKD-EPI 104.4 (>60)
[2022-03-19] MEDS: RALOXIFENE 60 MG PO SCH (08:35)
[2022-03-19] MEDS ORDERED: NS 0.9% 1000 ml BAG 1,000 ML IV SCH (11:15)
[2022-03-19] MEDS ORDERED: Magnesium Sulfate IV 3 GM in NS 0.9% 100 ml BAG 100 ML IVPB ONE (13:01)
[2022-03-19] MEDS ORDERED: Magnesium Sulfate 2 GM IV (Premix) IVPB ONE (13:10)
[2022-03-19] MEDS ORDERED: Magnesium Sulfate 1 GM IV 1 GM/100 ML BAG IV ONE (14:30)
[2022-03-19] MEDS: Acetaminophen IV 1 GM/100ML 100 ML IV PRN (17:02)
[2022-03-20] MEDS: Metoprolol Tartrate 5 mg VIAL 5 ml VIAL (1 mg/ml) IV PRN ×2 (05:02→06:06)
[2022-03-20] MEDS ORDERED: Lactated Ringers 500 ml BAG 500 ML IV ONE (05:05)
[2022-03-20] MEDS: Heparin 5000 UNITS/ML 1 mL VIAL SUBCUT SCH ×3 (06:28→20:47)
[2022-03-20 07:02] LABS: ABS Basophils 0.1 10^3/ul (0-0.2); ABS Eosinophils 0.1 10^3/ul (0-0.6); ABS Lymphocytes 0.7 10^3/ul (1.0-4.8); ABS Neutrophils 9.4 10^3/ul (1.5-7.7); Eosinophil % 0.6 %; Hematocrit 31 % (35-47); Hemoglobin 10.3 g/dL (12.0-16.0); Mean Corpuscular HGB Conc 33 g/dL (31-36); Mean Corpuscular Hemoglobin 32 pg (27-31); Mean Corpuscular Volume 98 fL (80-97); Mean Platelet Volume 7.8 fL (7.4-10.4); Platelet Count 602 10^3/uL (150-450); Red Blood Count 3.17 10^6 /uL (3.70-4.87); Red Cell Distribution Width 13 % (10-15); White Blood Count 11.2 10^3/uL (3.5-10.8)
[2022-03-20] MEDS ORDERED: Digoxin IV 0.5 MG/2 ML AMP (0.25 MG/ML) IV SLOW PU ONE (07:42)
[2022-03-20 07:54] LABS: Albumin 2.5 g/dL (3.2-5.2); Albumin/Globulin Ratio 0.9 (1-3); Calcium 7.7 mg/dL (8.6-10.3); Globulin 2.7 g/dL (2-4); Magnesium 1.8 mg/dL (1.9-2.7); Potassium 4.6 mmol/L (3.5-5.0); Total Bilirubin 0.2 mg/dL (0.2-1.0); Total Protein 5.2 g/dL (6.4-8.9)
[2022-03-20 07:55] LABS: Albumin 2.5 g/dL (3.2-5.2); Calcium 7.6 mg/dL (8.6-10.3); Globulin 2.6 g/dL (2-4); Magnesium 1.8 mg/dL (1.9-2.7); Phosphorus 3.7 mg/dL (2.5-5.0); Potassium 4.6 mmol/L (3.5-5.0); Total Bilirubin 0.2 mg/dL (0.2-1.0); Total Protein 5.1 g/dL (6.4-8.9)
[2022-03-20] MEDS: RALOXIFENE 60 MG PO SCH (10:40)
[2022-03-20] MEDS ORDERED: fentaNYL 100 mcg/2 ml 50 MCG/ML VIAL ONE (15:40)
[2022-03-20] MEDS ORDERED: TPN Peripheral STANDARD BASE A IV SCH (17:00)
[2022-03-21] MEDS: Heparin 5000 UNITS/ML 1 mL VIAL SUBCUT SCH ×3 (05:14→20:34)
[2022-03-21 06:25] LABS: Albumin 2.6 g/dL (3.2-5.2); Calcium 8.2 mg/dL (8.6-10.3); Globulin 2.7 g/dL (2-4); Magnesium 1.6 mg/dL (1.9-2.7); Phosphorus 3.1 mg/dL (2.5-5.0); Potassium 4.6 mmol/L (3.5-5.0); Total Bilirubin 0.2 mg/dL (0.2-1.0); Total Protein 5.3 g/dL (6.4-8.9); eGFR CKD-EPI 98.5 (>60)
[2022-03-21] MEDS ORDERED: Magnesium Sulf 4 GM/100 ML IV 4,000 MG/100 ML BAG IVPB ONE (07:20)
[2022-03-21] MEDS ORDERED: Albuterol/Ipratropium NEB.SOL (2.5/0.5 MG) 3 ML NEB.SOLN INH ONE (07:42)
[2022-03-21] MEDS: RALOXIFENE 60 MG PO SCH (08:34)
[2022-03-21] MEDS ORDERED: Furosemide 20 mg/2 ml IV VIAL IV SLOW PU ONE (09:03)
[2022-03-21 09:39] LABS: ABS Lymphocytes 0.7 10^3/ul (1.0-4.8); ABS Monocytes 1.1 10^3/ul (0-0.8); ABS Neutrophils 8.5 10^3/ul (1.5-7.7); Eosinophil % 0.1 %; Hematocrit 32 % (35-47); Hemoglobin 10.5 g/dL (12.0-16.0); Lymphocyte % 6.6 %; Mean Corpuscular HGB Conc 33 g/dL (31-36); Mean Corpuscular Hemoglobin 33 pg (27-31); Mean Corpuscular Volume 99 fL (80-97); Mean Platelet Volume 7.7 fL (7.4-10.4); Platelet Count 628 10^3/uL (150-450); Red Blood Count 3.24 10^6 /uL (3.70-4.87); Red Cell Distribution Width 14 % (10-15); White Blood Count 10.3 10^3/uL (3.5-10.8)
[2022-03-21] MEDS ORDERED: Albuterol/Ipratropium NEB.SOL (2.5/0.5 MG) 3 ML NEB.SOLN INH PRN (11:15)
[2022-03-21] MEDS ORDERED: Magnesium Sulfate 2 gm BAG 2 GM/50 ML BAG IVPB ONE (11:17)
[2022-03-21] MEDS: [UNRECOGNIZED DRUG - OTHER] CENT\\PICC SCH (17:35)
[2022-03-21] MEDS: STERILE WATER FOR INJECTION CENT\\PICC SCH (17:35)
[2022-03-21] MEDS: AMINO ACID INFUSION CENT\\PICC SCH (17:35)
[2022-03-21] MEDS: TPN CENT\\PICC SCH (17:35)
[2022-03-22] MEDS: Metoprolol Tartrate 5 mg VIAL 5 ml VIAL (1 mg/ml) IV PRN ×2 (03:29→15:38)
[2022-03-22] MEDS: Heparin 5000 UNITS/ML 1 mL VIAL SUBCUT SCH ×3 (05:23→20:43)
[2022-03-22 05:53] LABS: ABS Eosinophils 0.1 10^3/ul (0-0.6); ABS Lymphocytes 0.6 10^3/ul (1.0-4.8); ABS Monocytes 1.5 10^3/ul (0-0.8); ABS Neutrophils 8.6 10^3/ul (1.5-7.7); Eosinophil % 0.7 %; Hematocrit 29 % (35-47); Hemoglobin 9.3 g/dL (12.0-16.0); Lymphocyte % 5.8 %; Mean Corpuscular HGB Conc 33 g/dL (31-36); Mean Corpuscular Hemoglobin 32 pg (27-31); Mean Corpuscular Volume 98 fL (80-97); Mean Platelet Volume 7.5 fL (7.4-10.4); Platelet Count 582 10^3/uL (150-450); Red Blood Count 2.91 10^6 /uL (3.70-4.87); Red Cell Distribution Width 14 % (10-15); White Blood Count 10.8 10^3/uL (3.5-10.8)
[2022-03-22 06:21] LABS: Albumin 2.6 g/dL (3.2-5.2); Globulin 2.5 g/dL (2-4); Magnesium 1.9 mg/dL (1.9-2.7); Phosphorus 2.9 mg/dL (2.5-5.0); Total Bilirubin 0.2 mg/dL (0.2-1.0); Total Protein 5.1 g/dL (6.4-8.9)
[2022-03-22] MEDS: RALOXIFENE 60 MG PO SCH (08:50)
[2022-03-22] MEDS: Acetaminophen IV 1 GM/100ML 100 ML IV PRN (12:13)
[2022-03-22] MEDS ORDERED: Furosemide 20 mg/2 ml IV VIAL IV SLOW PU ONE (13:21)
[2022-03-22] MEDS: AMINO ACID INFUSION CENT\\PICC SCH (16:50)
[2022-03-22] MEDS: [UNRECOGNIZED DRUG - OTHER] CENT\\PICC SCH (16:50)
[2022-03-22] MEDS: STERILE WATER FOR INJECTION CENT\\PICC SCH (16:50)
[2022-03-22] MEDS: TPN CENT\\PICC SCH (16:50)
[2022-03-23] MEDS: Metoprolol Tartrate 5 mg VIAL 5 ml VIAL (1 mg/ml) IV PRN (03:57)
[2022-03-23] MEDS: Heparin 5000 UNITS/ML 1 mL VIAL SUBCUT SCH ×3 (05:20→20:36)
[2022-03-23 06:01] LABS: Albumin 2.5 g/dL (3.2-5.2); Calcium 8.2 mg/dL (8.6-10.3); Globulin 2.5 g/dL (2-4); Magnesium 1.7 mg/dL (1.9-2.7); Phosphorus 4.2 mg/dL (2.5-5.0); Potassium 4.2 mmol/L (3.5-5.0); Total Bilirubin 0.2 mg/dL (0.2-1.0); eGFR CKD-EPI 99.5 (>60)
[2022-03-23] MEDS ORDERED: Magnesium Sulfate IV 3 GM in NS 0.9% 100 ml BAG 100 ML IVPB ONE (07:29)
[2022-03-23] MEDS ORDERED: Magnesium Sulfate 2 GM IV (Premix) IVPB ONE (08:00)
[2022-03-23] MEDS: RALOXIFENE 60 MG PO SCH (08:55)
[2022-03-23] MEDS ORDERED: Magnesium Sulfate 1 GM IV 1 GM/100 ML BAG IV ONE (09:00)
[2022-03-23] MEDS ORDERED: Cyanocobalamin INJ 1,000 MCG/ML VIAL 1 ML VIAL IM ONE (16:57)
[2022-03-24] MEDS: Heparin 5000 UNITS/ML 1 mL VIAL SUBCUT SCH ×2 (05:46→13:38)
[2022-03-24 06:15] LABS: ABS Lymphocytes 0.8 10^3/ul (1.0-4.8); ABS Monocytes 1.6 10^3/ul (0-0.8); ABS Neutrophils 9.5 10^3/ul (1.5-7.7); Eosinophil % 0.3 %
[2022-03-24 06:43] LABS: Calcium 7.8 mg/dL (8.6-10.3); Potassium 4.6 mmol/L (3.5-5.0); eGFR CKD-EPI 98.5 (>60)
[2022-03-24 06:59] LABS: Hematocrit 24 % (35-47); Hemoglobin 7.9 g/dL (12.0-16.0); Mean Corpuscular HGB Conc 32 g/dL (31-36); Mean Corpuscular Hemoglobin 32 pg (27-31); Mean Corpuscular Volume 97 fL (80-97); Mean Platelet Volume 8.2 fL (7.4-10.4); Platelet Count 555 10^3/uL (150-450); Red Blood Count 2.49 10^6 /uL (3.70-4.87); Red Cell Distribution Width 14 % (10-15)
[2022-03-24] MEDS: RALOXIFENE 60 MG PO SCH (07:44)
[2022-03-24 08:41] LABS: C Reactive Protein 69.17 mg/L (<8.01)
[2022-03-24 09:55] LABS: Erythrocyte Sed Rate 110 mm/Hr (0-29)
[2022-03-24 12:14] LABS: Magnesium 1.8 mg/dL (1.9-2.7); Phosphorus 4.2 mg/dL (2.5-5.0)
[2022-03-24] MEDS ORDERED: Magnesium Sulfate 2 gm BAG 2 GM/50 ML BAG IVPB ONE (12:57)
[2022-03-24] MEDS: Acetaminophen IV 1 GM/100ML 100 ML IV PRN (13:05)
[2022-03-24] MEDS ORDERED: WATER CENT\\PICC SCH (17:00)
[2022-03-24] MEDS ORDERED: TPN CENT\\PICC SCH (17:00)
[2022-03-24] MEDS ORDERED: [UNRECOGNIZED DRUG - OTHER] CENT\\PICC SCH (17:00)
[2022-03-24] MEDS ORDERED: DEXTROSE 70% CENT\\PICC SCH (17:00)
[2022-03-24] MEDS ORDERED: AMINO ACID INFUSION CENT\\PICC SCH (17:00)
[2022-03-24] MEDS: Enoxaparin 40 MG/0.4 ML SYR SUBCUT SCH (20:40)
[2022-03-24 21:54] LABS: Body Fluid WBC 10194 /mcL
[2022-03-24 22:00] LABS: Body Fluid Appearance Cloudy; Body Fluid Source Synovial Fluid
[2022-03-24 22:01] LABS: Body Fluid Color Yellow
[2022-03-24 23:22] LABS: Body Fluid Mono 9 %; Body Fluid Total Cells Counted 200
[2022-03-25 05:23] LABS: ABS Basophils 0.1 10^3/ul (0-0.2); ABS Eosinophils 0.1 10^3/ul (0-0.6); ABS Lymphocytes 0.9 10^3/ul (1.0-4.8); ABS Monocytes 1.4 10^3/ul (0-0.8); ABS Neutrophils 8.6 10^3/ul (1.5-7.7); Eosinophil % 0.9 %; Hematocrit 23 % (35-47); Hemoglobin 7.4 g/dL (12.0-16.0); Lymphocyte % 8.4 %; Mean Corpuscular HGB Conc 32 g/dL (31-36); Mean Corpuscular Hemoglobin 31 pg (27-31); Mean Corpuscular Volume 98 fL (80-97); Mean Platelet Volume 8.1 fL (7.4-10.4); Nucleated Red Blood Cells % 0.1; Platelet Count 569 10^3/uL (150-450); Red Blood Count 2.38 10^6 /uL (3.70-4.87); Red Cell Distribution Width 14 % (10-15)
[2022-03-25 05:56] LABS: ALT 31 U/L (7-52); AST 27 U/L (13-39); Albumin 2.4 g/dL (3.2-5.2); Albumin/Globulin Ratio 0.9 (1-3); Alkaline Phosphatase 32 U/L (35-149); Anion Gap 9 mmol/L (2-11); Blood Urea Nitrogen 16 mg/dL (6-24); CO2 Carbon Dioxide 24 mmol/L (22-32); Calcium 7.9 mg/dL (8.6-10.3); Chloride 102 mmol/L (101-111); Cholesterol 163 mg/dL; Globulin 2.6 g/dL (2-4); Glucose 117 mg/dL (70-100); Magnesium 1.9 mg/dL (1.9-2.7); Phosphorus 3.6 mg/dL (2.5-5.0); Potassium 4.9 mmol/L (3.5-5.0); Prealbumin 12 mg/dL (18-38); Sodium 135 mmol/L (135-145); Triglycerides 85 mg/dL
[2022-03-25] MEDS ORDERED: Magnesium Sulfate 2 gm BAG 2 GM/50 ML BAG IVPB ONE (06:53)
[2022-03-25 07:47] LABS: Total Iron Binding Capacity 197 mcg/dL (250-450); Transferrin 141 mg/dL (203-362)
[2022-03-25 08:03] LABS: % Iron Saturation 10 % (15-55); Iron < 20 ug/dL (50-212); Unsaturated Iron Binding 177 ug/dL
[2022-03-25 08:07] LABS: Ferritin 107.6 ng/mL (11-307)
[2022-03-25] MEDS: RALOXIFENE 60 MG PO SCH (08:27)
[2022-03-25] MEDS ORDERED: Iron Sucrose 20 MG/ML 5 ML VIAL IV PUSH SCH (10:00)
[2022-03-25] MEDS: Iron Sucrose 200 MG in NS 0.9% 100 ml IVPB SCH (11:16)
[2022-03-25] MEDS: [UNRECOGNIZED DRUG - OTHER] CENT\\PICC SCH (18:06)
[2022-03-25] MEDS: WATER CENT\\PICC SCH (18:06)
[2022-03-25] MEDS: TPN CENT\\PICC SCH (18:06)
[2022-03-25] MEDS: DEXTROSE 70% CENT\\PICC SCH (18:06)
[2022-03-25] MEDS: AMINO ACID INFUSION CENT\\PICC SCH (18:06)
[2022-03-25] MEDS: Enoxaparin 40 MG/0.4 ML SYR SUBCUT SCH (21:15)
[2022-03-26 05:02] LABS: ABS Eosinophils 0.1 10^3/ul (0-0.6); ABS Lymphocytes 0.8 10^3/ul (1.0-4.8); ABS Monocytes 1.3 10^3/ul (0-0.8); ABS Neutrophils 7.5 10^3/ul (1.5-7.7); Eosinophil % 1.1 %; Hematocrit 22 % (35-47); Hemoglobin 7.1 g/dL (12.0-16.0); Lymphocyte % 8.6 %; Mean Corpuscular HGB Conc 32 g/dL (31-36); Mean Corpuscular Hemoglobin 32 pg (27-31); Mean Corpuscular Volume 98 fL (80-97); Mean Platelet Volume 8.2 fL (7.4-10.4); Nucleated Red Blood Cells % 0.1; Platelet Count 582 10^3/uL (150-450); Red Blood Count 2.23 10^6 /uL (3.70-4.87); Red Cell Distribution Width 14 % (10-15); White Blood Count 9.8 10^3/uL (3.5-10.8)
[2022-03-26 05:41] LABS: Calcium 8.4 mg/dL (8.6-10.3); Magnesium 1.9 mg/dL (1.9-2.7); eGFR CKD-EPI 97.2 (>60)
[2022-03-26] MEDS ORDERED: Magnesium Sulfate 2 gm BAG 2 GM/50 ML BAG IVPB ONE (07:22)
[2022-03-26] MEDS: Iron Sucrose 200 MG in NS 0.9% 100 ml IVPB SCH (10:06)
[2022-03-26] MEDS: RALOXIFENE 60 MG PO SCH (10:17)
[2022-03-26] MEDS: WATER CENT\\PICC SCH (17:46)
[2022-03-26] MEDS: DEXTROSE 70% CENT\\PICC SCH (17:46)
[2022-03-26] MEDS: TPN CENT\\PICC SCH (17:46)
[2022-03-26] MEDS: [UNRECOGNIZED DRUG - OTHER] CENT\\PICC SCH (17:46)
[2022-03-26] MEDS: AMINO ACID INFUSION CENT\\PICC SCH (17:46)
[2022-03-26] MEDS: Enoxaparin 40 MG/0.4 ML SYR SUBCUT SCH (20:07)
[2022-03-27] MEDS: Acetaminophen IV 1 GM/100ML 100 ML IV PRN ×3 (04:16→21:30)
[2022-03-27 04:27] LABS: Hematocrit 24 % (35-47); Hemoglobin 7.6 g/dL (12.0-16.0); Mean Corpuscular HGB Conc 32 g/dL (31-36); Mean Corpuscular Hemoglobin 32 pg (27-31); Mean Corpuscular Volume 98 fL (80-97); Mean Platelet Volume 8.4 fL (7.4-10.4); Platelet Count 594 10^3/uL (150-450); Red Blood Count 2.41 10^6 /uL (3.70-4.87); Red Cell Distribution Width 14 % (10-15); White Blood Count 10.5 10^3/uL (3.5-10.8)
[2022-03-27] MEDS ORDERED: Magnesium Sulf 4 GM/100 ML IV 4,000 MG/100 ML BAG IVPB ONE (08:00)
[2022-03-27] MEDS: RALOXIFENE 60 MG PO SCH (09:31)
[2022-03-27] MEDS: Iron Sucrose 200 MG in NS 0.9% 100 ml IVPB SCH (13:05)
[2022-03-27 13:34] LABS: Calcium 8.4 mg/dL (8.6-10.3); Potassium 4.8 mmol/L (3.5-5.0)
[2022-03-27] MEDS: Enoxaparin 40 MG/0.4 ML SYR SUBCUT SCH (21:28)
[2022-03-28] MEDS: RALOXIFENE 60 MG PO SCH (08:24)
[2022-03-28] MEDS: Iron Sucrose 200 MG in NS 0.9% 100 ml IVPB SCH (09:06)
[2022-03-28 14:32] LABS: Hematocrit 26 % (35-47); Hemoglobin 8.2 g/dL (12.0-16.0); Mean Corpuscular HGB Conc 32 g/dL (31-36); Mean Corpuscular Hemoglobin 32 pg (27-31); Mean Corpuscular Volume 99 fL (80-97); Mean Platelet Volume 8.6 fL (7.4-10.4); Platelet Count 718 10^3/uL (150-450); Red Blood Count 2.59 10^6 /uL (3.70-4.87); Red Cell Distribution Width 14 % (10-15); White Blood Count 7.9 10^3/uL (3.5-10.8)
[2022-03-28 15:26] LABS: Calcium 8.2 mg/dL (8.6-10.3); Magnesium 1.5 mg/dL (1.9-2.7); Phosphorus 3.6 mg/dL (2.5-5.0); Potassium 4.4 mmol/L (3.5-5.0); Total Bilirubin 0.2 mg/dL (0.2-1.0)
[2022-03-28] MEDS ORDERED: Magnesium Sulf 4 GM/100 ML IV 4,000 MG/100 ML BAG IVPB ONE (15:30)
[2022-03-28] MEDS: Enoxaparin 40 MG/0.4 ML SYR SUBCUT SCH (21:33)
[2022-03-29 03:39] LABS: Hematocrit 23 % (35-47); Hemoglobin 7.3 g/dL (12.0-16.0); Mean Corpuscular HGB Conc 32 g/dL (31-36); Mean Corpuscular Hemoglobin 31 pg (27-31); Mean Corpuscular Volume 98 fL (80-97); Mean Platelet Volume 8.3 fL (7.4-10.4); Platelet Count 637 10^3/uL (150-450); Red Blood Count 2.34 10^6 /uL (3.70-4.87); Red Cell Distribution Width 14 % (10-15); White Blood Count 8.2 10^3/uL (3.5-10.8)
[2022-03-29 04:21] LABS: Calcium 8.3 mg/dL (8.6-10.3); Magnesium 2.1 mg/dL (1.9-2.7); Potassium 4.2 mmol/L (3.5-5.0); eGFR CKD-EPI 100.5 (>60)
[2022-03-29] MEDS: RALOXIFENE 60 MG PO SCH (08:51)
[2022-03-29] MEDS: Iron Sucrose 200 MG in NS 0.9% 100 ml IVPB SCH (09:00)
[2022-03-29] MEDS: Enoxaparin 40 MG/0.4 ML SYR SUBCUT SCH (20:08)
[2022-03-30 03:40] LABS: Hematocrit 22 % (35-47); Hemoglobin 7.2 g/dL (12.0-16.0); Mean Corpuscular HGB Conc 32 g/dL (31-36); Mean Corpuscular Hemoglobin 32 pg (27-31); Mean Corpuscular Volume 98 fL (80-97); Mean Platelet Volume 8.4 fL (7.4-10.4); Platelet Count 594 10^3/uL (150-450); Red Blood Count 2.28 10^6 /uL (3.70-4.87); Red Cell Distribution Width 14 % (10-15)
[2022-03-30 04:33] LABS: Calcium 8.2 mg/dL (8.6-10.3); Magnesium 1.4 mg/dL (1.9-2.7); Potassium 4.1 mmol/L (3.5-5.0)
[2022-03-30] MEDS ORDERED: Magnesium Sulf 4 GM/100 ML IV 4,000 MG/100 ML BAG IVPB ONE (07:23)
[2022-03-30] MEDS: RALOXIFENE 60 MG PO SCH (09:52)
[2022-03-30] MEDS: Enoxaparin 40 MG/0.4 ML SYR SUBCUT SCH (20:35)
[2022-03-31 00:28] LABS: Hematocrit 22 % (35-47); Hemoglobin 7.4 g/dL (12.0-16.0)
[2022-03-31 05:35] LABS: Hematocrit 26 % (35-47); Hemoglobin 8.4 g/dL (12.0-16.0); Mean Corpuscular HGB Conc 32 g/dL (31-36); Mean Corpuscular Hemoglobin 31 pg (27-31); Mean Corpuscular Volume 98 fL (80-97); Mean Platelet Volume 8.4 fL (7.4-10.4); Platelet Count 612 10^3/uL (150-450); Red Blood Count 2.67 10^6 /uL (3.70-4.87); Red Cell Distribution Width 14 % (10-15)
[2022-03-31 06:24] LABS: Calcium 8.5 mg/dL (8.6-10.3); Magnesium 1.7 mg/dL (1.9-2.7); Potassium 3.9 mmol/L (3.5-5.0); eGFR CKD-EPI 96.3 (>60)
[2022-03-31] MEDS ORDERED: Magnesium Sulf 4 GM/100 ML IV 4,000 MG/100 ML BAG IVPB ONE (06:32)
[2022-03-31] MEDS: RALOXIFENE 60 MG PO SCH (08:47)
[2022-03-31] MEDS: Enoxaparin 40 MG/0.4 ML SYR SUBCUT SCH (20:12)
[2022-04-01 06:13] LABS: Albumin 2.9 g/dL (3.2-5.2); Albumin/Globulin Ratio 1.1 (1-3); Calcium 8.2 mg/dL (8.6-10.3); Globulin 2.6 g/dL (2-4); Magnesium 1.6 mg/dL (1.9-2.7); Phosphorus 3.5 mg/dL (2.5-5.0); Total Bilirubin 0.2 mg/dL (0.2-1.0); Total Protein 5.5 g/dL (6.4-8.9); eGFR CKD-EPI 98.5 (>60)
[2022-04-01] MEDS: RALOXIFENE 60 MG PO SCH (07:59)
[2022-04-01] MEDS ORDERED: Magnesium Sulf 4 GM/100 ML IV 4,000 MG/100 ML BAG IVPB ONE (08:00)
[2022-04-01 11:39] VITALS: BP 174/78
== END 2022-04-01 16:15 | disposition home health service (06) | DRG 853 ==
LOC: ED 20:30 → EDHOLD 03-14 03:23 → SUATTDRO 03-14 03:23 → MEDTELE 03-14 05:40 → SSU 03-16 16:36 → MEDTELE 03-20 07:47
PROVIDERS: ADMIT Internal Medicine; ATTEND Internal Medicine

== ENCOUNTER 2022-09-17 13:13 | Inpatient (IN) ==
[2022-09-17] MEDS ORDERED: Senna TAB 8.6 mg TAB PO PRN (16:53)
[2022-09-18] MEDS: Enoxaparin 40 MG/0.4 ML SYR SUBCUT SCH (12:20)
[2022-09-19 06:32] LABS: ABS Basophils 0.1 10^3/ul (0-0.2); ABS Lymphocytes 1.1 10^3/ul (1.0-4.8); ABS Monocytes 0.8 10^3/ul (0-0.8); Eosinophil % 0.1 %; Hematocrit 24 % (35-47); Hemoglobin 7.6 g/dL (12.0-16.0); Lymphocyte % 18.4 %; Mean Corpuscular HGB Conc 32 g/dL (31-36); Mean Corpuscular Hemoglobin 35 pg (27-31); Mean Corpuscular Volume 107 fL (80-97); Mean Platelet Volume 7.2 fL (7.4-10.4); Platelet Count 282 10^3/uL (150-450); Red Cell Distribution Width 19 % (10-15); White Blood Count 6.1 10^3/uL (3.5-10.8)
[2022-09-19 07:08] LABS: Albumin 2.3 g/dL (3.2-5.2); Albumin/Globulin Ratio 1.2 (1-3); Calcium 7.7 mg/dL (8.6-10.3); Potassium 3.2 mmol/L (3.5-5.0); Total Bilirubin 0.4 mg/dL (0.2-1.0); Total Protein 4.3 g/dL (6.4-8.9); eGFR CKD-EPI 94.7 (>60)
[2022-09-19] MEDS ORDERED: Potassium Chlor 20 meq TAB.ER PO ONE (08:09)
[2022-09-19 08:19] LABS: Magnesium 1.4 mg/dL (1.9-2.7)
[2022-09-19 08:40] LABS: Ferritin 311.8 ng/mL (11-307)
[2022-09-19 08:43] LABS: Folate 16.25 ng/mL (5.90-24.80)
[2022-09-19 10:04] LABS: Corrected Retic Count 2.4 % (0.5-1.5); Hematocrit for Retic CNT 27 % (35-47); Immature Retic Fraction 0.48; RBC Retic Count 2.48 10^6/uL (3.70-4.87)
[2022-09-19] MEDS: Enoxaparin 40 MG/0.4 ML SYR SUBCUT SCH (12:23)
[2022-09-19] MEDS ORDERED: Magnesium Sulf 4 GM/100 ML IV 4,000 MG/100 ML BAG IVPB ONE (12:30)
[2022-09-19] MEDS: Potassium Chlor 20 meq TAB.ER PO SCH (15:59)
[2022-09-20 06:56] LABS: Hematocrit 31 % (35-47); Hemoglobin 10.6 g/dL (12.0-16.0); Mean Corpuscular HGB Conc 34 g/dL (31-36); Mean Corpuscular Hemoglobin 34 pg (27-31); Mean Corpuscular Volume 100 fL (80-97); Mean Platelet Volume 7.3 fL (7.4-10.4); Platelet Count 249 10^3/uL (150-450); Red Blood Count 3.09 10^6 /uL (3.70-4.87); Red Cell Distribution Width 22 % (10-15); White Blood Count 4.5 10^3/uL (3.5-10.8)
[2022-09-20 07:43] LABS: Calcium 7.9 mg/dL (8.6-10.3); Magnesium 2.1 mg/dL (1.9-2.7); Potassium 3.8 mmol/L (3.5-5.0); eGFR CKD-EPI 94.3 (>60)
[2022-09-20] MEDS: Potassium Chlor 20 meq TAB.ER PO SCH ×2 (08:20→20:14)
[2022-09-20] MEDS: Enoxaparin 40 MG/0.4 ML SYR SUBCUT SCH ×2 (08:20→08:56)
[2022-09-21] MEDS: Potassium Chlor 20 meq TAB.ER PO SCH ×2 (09:31→20:48)
[2022-09-21] MEDS: Enoxaparin 40 MG/0.4 ML SYR SUBCUT SCH (09:32)
[2022-09-22 07:20] LABS: Hematocrit 33 % (35-47); Mean Corpuscular HGB Conc 33 g/dL (31-36); Mean Corpuscular Hemoglobin 33 pg (27-31); Mean Corpuscular Volume 100 fL (80-97); Mean Platelet Volume 7.5 fL (7.4-10.4); Platelet Count 236 10^3/uL (150-450); Red Blood Count 3.32 10^6 /uL (3.70-4.87); Red Cell Distribution Width 21 % (10-15)
[2022-09-22 08:02] LABS: Calcium 8.6 mg/dL (8.6-10.3); Magnesium 1.5 mg/dL (1.9-2.7); Potassium 3.8 mmol/L (3.5-5.0); eGFR CKD-EPI 91.9 (>60)
[2022-09-22] MEDS: Enoxaparin 40 MG/0.4 ML SYR SUBCUT SCH (08:08)
[2022-09-22] MEDS: Potassium Chlor 20 meq TAB.ER PO SCH ×2 (08:08→19:44)
[2022-09-23] MEDS: Enoxaparin 40 MG/0.4 ML SYR SUBCUT SCH (09:14)
[2022-09-23] MEDS: Potassium Chlor 20 meq TAB.ER PO SCH ×2 (09:15→20:08)
[2022-09-24 01:32] LABS: Urine Appearance Clear; Urine Bilirubin Negative (Negative); Urine Blood Negative (Negative); Urine Color Straw; Urine Glucose Negative (Negative); Urine Ketones Negative (Negative); Urine Nitrite Negative (Negative); Urine Protein Negative (Negative); Urine Specific Gravity 1.006 (1.002-1.030); Urine Urobilinogen Negative (Negative)
[2022-09-24] MEDS: Potassium Chlor 20 meq TAB.ER PO SCH ×2 (07:30→20:12)
[2022-09-24] MEDS: Enoxaparin 40 MG/0.4 ML SYR SUBCUT SCH (07:32)
[2022-09-25 04:52] VITALS: BP 138/69
[2022-09-25 06:57] LABS: Calcium 8.6 mg/dL (8.6-10.3); Magnesium 1.4 mg/dL (1.9-2.7); Potassium 4.2 mmol/L (3.5-5.0); eGFR CKD-EPI 86.8 (>60)
[2022-09-25] MEDS: Enoxaparin 40 MG/0.4 ML SYR SUBCUT SCH (07:35)
[2022-09-25] MEDS: Potassium Chlor 20 meq TAB.ER PO SCH (07:35)
== END 2022-09-25 12:40 | disposition home or self-care (01) | DRG 945 ==
LOC: PMRU 14:03
PROVIDERS: ADMIT Physical Medicine & Rehabilitation; ATTEND Physical Medicine & Rehabilitation